=== PATIENT | female | born 1955 | race Caucasian/White ===

== ENCOUNTER 2017-04-07 17:56 | Emergency (ER) | payer SELFPAY ==
[~2017-04-07] VITALS: Ht 160 cm; Wt 97.6 kg
[2017-04-07] MEDS ORDERED: ACET325T14 PO (18:18)
[2017-04-07] MEDS ORDERED: SODIUM CHLORIDE 0.9% 1,000 ML IV ONE (18:32)
[2017-04-07] MEDS ORDERED: HYDROmorphone 1 MG/ML, 1ML ONE ×2 (18:41→20:11)
[2017-04-07] MEDS ORDERED: ONDANSETRON 2MG/ML, 2ML ONE (18:41)
[2017-04-07] MEDS: HYDROmorphone 1 MG/ML, 1ML IVPush PRN ×2 (18:46→20:15)
[2017-04-07] MEDS ORDERED: ONDANSETRON 2MG/ML, 2ML IVPush ONE (19:00)
[2017-04-07] MEDS ORDERED: SODIUM CHLORIDE FLUSH 10ML SYR IVF ONE (19:00)
[2017-04-07 19:13] LABS: ASPARTATE AMINO TRANSFERASE 24 U/L (15-37); BLOOD UREA NITROGEN 21 mg/dL (7-18)
[2017-04-07 20:09] LABS: PATH.CAST-FLAG NOT PRESENT; SPERM-FLAG NOT PRESENT; SRC-FLAG NOT PRESENT; XTAL-FLAG NOT PRESENT; YLC-FLAG NOT PRESENT
[2017-04-07 21:43] VITALS: BP 136/76
== END 2017-04-07 21:47 | disposition home or self-care (01) ==
LOC: ED 19:16
DX: N13.2 Hydronephrosis with renal and ureteral calculous obstruction (principal); N20.2 Calculus of kidney with calculus of ureter; Z91.041 Radiographic dye allergy status; Z90.710 Acquired absence of both cervix and uterus
CPT/HCPCS: 36415; 74176; 80053; 81001; 83690; 85025; 87086; 96361; 96374; 96375; 96376; 99285; J1170; J2405; J7030